=== PATIENT | female | born 2000 | race African-American/Black ===

== ENCOUNTER 2022-08-12 13:15 | Emergency (ER) | payer OTHER, SELFPAY ==
[2022-08-12 13:17] VITALS: BP 132/71; PULSE 61; RESP 14; TEMP 36.7; O2SAT 96; BMI 28.5
--- NOTE | 2022-08-12 13:24 | RAD_ITS ---
STUDY: X-RAY - LEFT HAND, ATTENTION THIRD FINGER REASON FOR EXAM: Female, 21 years old. INJURY FROM TRUNK LID -- 3RD DIGIT TECHNIQUE: 3 view(s) of the finger were obtained. COMPARISON: None. FINDINGS: Normal metacarpal head. Normal metacarpophalangeal joint. Normal proximal phalanx. Normal middle phalanx. Normal distal phalanx. Normal proximal interphalangeal joint. Normal distal interphalangeal joint. RAD/Finger(s) Min 2 Views IMPRESSION: Normal x-ray examination of the finger. Electronically Signed: Louis Felix MD at 13:48 EDT ,
--- NOTE | 2022-08-12 15:08 | EDS_ITS ---
HPI History of Present Illness Chief Complaint: Upper Extremity Injury Detail of Chief Complaint: Crush injury left long finger Informant: patient Occured/Mechanism Mechanism/Context: Yes blunt trauma Comment: Finger crushed by trunk 30 minutes prior to presentation Onset/Context/Timing Onset: Hours Context: Sudden Onset Timing: Continuous Quality of Pain: Dull and Throbbing Location: Left long finger Current Severity: Mild Maximum Severity: Moderate Worsened by: Movement and pressure Relieved by: Nothing Associated Symptoms Associated Symptoms: Negative for Parasthesia, Weakness or Loss of Funtion Narrative Narrative: Patient is a 21-year-old [id number] woman who presents with crush injury to her left long finger. She was closing her trunk. Her finger was smashed. She presents because of pain and subungual hematoma. She denies paresthesia, anesthesia or motor weakness. Tetanus is up-to-date. Tetanus Immunization: 5-10 years Prior similar symptoms: No Recent Illness/Hospitalization: No PFSH PFSH Medical History no medical history no medical history Allergy/AdvReac Type Severity Reaction Status Date / Time No Known Allergies Allergy Verified 08/12/22 13:19 Surgical History no surgical history no surgical history Social History (Updated 08/12/22 @ 15:[address] Justin Garcia MD) Smoking Status: Never smoker alcohol intake: never substance use type: does not use ROS ROS ED Musculoskeletal Musculoskeletal: Denies myalgias or neck pain Integumentary Reports other Details: Subungual hematoma left long finger ; Denies abscess, Abrasions or rash Neurologic Neurologic: Reports other Details: Detailed in the HPI narrative ; Denies paresthesias Hematologic/Lymphatic Hematologic/Lymphatic: Denies easy bleeding or easy bruising EXAM Physical Exam Const Vital Signs: 08/12/22 13:17 Temperature 98.1 F Temperature Source Temporal Pulse Rate 61 Respiratory Rate 14 Blood Pressure 132/71 H Blood Pressure Mean 91 Pulse Ox 96 Oxygen Delivery Method Room Air Positive well nourished and well developed Constitutional Narrative: Patient appears uncomfortable. She has ice applied to her left finger. General Appearance ED: well developed; Negative for cyanotic or diaphoretic HEENT normocephalic and atraumatic Eyes PERRL and EOMs intact bilaterally Resp normal respiratory effort Cardio regular rate and regular rhythm Extremity Negative for normal to inspection Extremity Narrative: There is a 40 to 50% subungual hematoma left long finger. The extensor commonest tendon is function intact. The flexor digitorum superficialis and flexor digitorum profundus are intact. Capillary fill is normal. Two-point termination is normal. There is no abrasion, laceration noted. Neuro oriented x3, CN's II-XII intact bilaterally, no focal motor deficits and no sensory deficits noted Psych mental status grossly normal Skin Skin Narrative: Described under the extremity portion of the medical record. Lesions: no lesions Rashes: no rashes MDM MDM Radiography Chest X-Ray - ED: Read by ED Physician (Three-view x-ray of the left long finger was performed. There is no evidence of fracture or soft tissue swelling. There is no evidence of subluxation or dislocation either. This was independent reviewed interpreted by me.) Diagnostic Testing: Clinical Impression(s) from Imaging Studies Finger X-Ray 08/12/22 13:24 IMPRESSION: Normal x-ray examination of the finger. Electronically Signed: Louis Felix MD at 13:48 EDT Reading Location ID and State: [facility] / [place] , Service support , Procedures Other Procedures Procedure(s): Trephination nail left long finger Discharge Plan Triage Chief Complaint: Upper Extremity Injury ED Provider: Justin Garcia Dx/Rx/DC Orders Clinical Impression: Crushing injury of other finger, initial encounter, Subungual hematoma of left middle finger Instructions: ED Subungual Hematoma Referrals: Whitney Arzate DO [Med Staff - [employer]] - As Needed Activity Restrictions/Additional Instructions: There is a 2550% chance that you may lose the nail. Since you do not have a physician you were referred to Dr. Arzate. Disposition Disposition: Home, Self Care
[2022-08-12 15:24] VITALS: PULSE 87; RESP 16; O2SAT 99
== END 2022-08-12 15:34 | disposition home or self-care (01) ==
PROVIDERS: Emergency Provider Emergency Medicine; Visit Provider Emergency Medicine
DX: S67.193A Crushing injury of left middle finger, initial encounter (principal); S60.132A Contusion of left middle finger with damage to nail, initial encounter; W23.0XXA Caught, crushed, jammed, or pinched between moving objects, initial encounter
CPT/HCPCS: 11740; 11730; 73140; 99282

== ENCOUNTER 2023-01-12 09:15 | Emergency (ER) | payer OTHER, SELFPAY ==
[2023-01-12 09:15] VITALS: BP 139/65; PULSE 73; RESP 15; TEMP 36.4; O2SAT 100; BMI 28.3
--- NOTE | 2023-01-12 10:00 | EDS_ITS ---
HPI History of Present Illness HPI Narrative: Presents with bilateral lower extremity edema that she noticed yesterday. Patient states she also has some pain in her right foot for the past few days. Patient denies any specific trauma or injury. Patient states her foot pain is worse with weightbearing. Patient describes it as sharp. Patient denies any paresthesias or weakness. Patient states that her legs have some pitting edema bilaterally, worse on the left. Patient denies any fevers or chills. Patient denies any shortness of breath or cough. Patient denies any paresthesias or weakness. Chief Complaint: Edema Informant: patient Onset/Context/Timing Onset: Yesterday Context: Gradual Onset Timing: Continuous Location: Bilateral lower legs Worsened by: Nothing Relieved by: Nothing Associated Symptoms Associated Symptoms: Negative for Parasthesia, Weakness or Loss of Funtion PFSH PFSH Medical History no medical history no medical history Allergy/AdvReac Type Severity Reaction Status Date / Time No Known Allergies Allergy Verified 08/12/22 13:19 Surgical History (Updated 01/12/23 @ 10:[address] Eric Maki DO) History of mandibular surgery Social History Smoking Status: Never smoker alcohol intake: never substance use type: does not use ROS ROS ED Constitutional Constitutional ED: Denies chills or fever(s) Eyes Eyes: Denies blurry vision or change in vision ENT ENT ED: Denies rhinorrhea or sore throat Cardiovascular Cardiovascular: Denies chest pain or palpitations Respiratory/Chest Respiratory/Chest: Denies cough or dyspnea Gastrointestinal Gastrointestinal: Denies nausea or vomiting Genitourinary Genitourinary ED: Denies dysuria or hematuria Musculoskeletal Musculoskeletal: Denies back pain or neck pain Integumentary Denies abscess or rash Neurologic Neurologic: Denies headache(s) or weakness Allergic/Immunologic Allergic/Immunologic ED: Denies mouth swelling or urticaria EXAM Physical Exam Const Vital Signs: 01/12/23 09:15 01/12/23 09:26 01/12/23 11:15 Temperature 97.5 F L Temperature Source Temporal Pulse Rate 73 Respiratory Rate 15 16 Respiratory Effort Normal Non-Labored Respiratory Pattern Normal Blood Pressure 139/65 H Blood Pressure Mean 89 Pulse Ox 100 Oxygen Delivery Method Room Air Positive well nourished and well developed General Appearance ED: well developed and NAD HEENT Reports moist mucous membranes Neck full ROM and supple Extremity normal to inspection and full ROM Extremity Narrative: There is tenderness over the midportion of the right foot. There is no obvious deformity noted. Range of motion was limited in all motions of the right foot secondary to pain. Sensation was intact to light touch in all digits. Pedal pulses are equal bilaterally.. There is trace edema over the lower extremities bilaterally. The there is no calf tenderness. There is full range of motion. Neuro oriented x3, CN's II-XII intact bilaterally, moves all extremities and no sensory deficits noted Sensorium / Orientation: alert Motor Exam: strength 5/5 throughout Psych mental status grossly normal MDM MDM MDM Narrative Medical decision making narrative: Differential diagnosis includes stress fracture right foot, sprain, peripheral edema, acute kidney injury. X-rays of the right foot will be obtained to assess for fracture. CBC will be obtained to assess for leukocytosis and anemia. Basic metabolic profile likely obtained to assess for electrolyte abnormality and renal function. Lab Data Attestation: I reviewed the patient's lab results. Lab results narrative: CBC was reviewed and was essentially within normal limits. Basic metabolic profile was reviewed and was within normal limits. Labs: Laboratory Results - last 24 hr 01/12/23 10:31 WBC 3.6 L RBC 4.48 Hgb 12.3 Hct 39.8 MCV 88.8 MCH 27.5 MCHC 30.9 L RDW Std Deviation 44.0 H RDW Coeff of Brenda 13.5 Plt Count 319 MPV 9.8 Immature Gran % (Auto) 0.300 Neut % (Auto) 46.9 L Lymph % (Auto) 41.9 H [place] % (Auto) 6.4 Eos % (Auto) 3.9 Baso % (Auto) 0.6 Absolute Neuts (auto) 1.7 L Absolute Lymphs (auto) 1.51 Nucleated RBC % 0 Sodium 138 Potassium 3.7 Chloride 110 H Carbon Dioxide 24.0 Anion Gap 4 L BUN 9 Creatinine 0.84 Estim Creat Clear Calc 92.25 Est GFR (MDRD) Af Amer 111 Est GFR (MDRD) Non-Af 91 BUN/Creatinine Ratio 10.7 Glucose 122 H Calcium 8.6 Radiography Diagnostic Testing: Clinical Impression(s) from Imaging Studies Foot X-Ray 01/12/23 10:23 IMPRESSION: Within normal limits examination. Electronically Signed: Cecilia Salomon MD at 11:02 EDT , X-rays of the right foot were obtained. There are 3 views. On my independent interpretation, there is no acute fracture. There is no dislocation. There is no soft tissue swelling. Radiologist also interpreted the x-rays and agrees. Treatment and Re-Evaluation Narrative: Patient was advised of her findings. Patient was given a walking boot. Patient was instructed to ice and elevate the right foot. Patient was instructed to call or ibuprofen as needed for pain. Patient was instructed to follow-up with her primary care physician in 5 to 7 days. Patient understood and was agreeable with the plan. All questions were answered. Discharge Plan Triage Chief Complaint: Edema ED Provider: Eric Maki Dx/Rx/DC Orders Clinical Impression: Peripheral edema, Arthralgia of right foot Instructions: ED Peripheral Edema, Bilateral, ED Foot Sprain Primary Care Provider: Tello Pradhan MD Referrals: Tello Pradhan MD [Other] - 5-7 Days Disposition Disposition: Home, Self Care Discharge Date/Time: 01/12/23 11:48
--- NOTE | 2023-01-12 10:23 | RAD_ITS ---
INDICATION: Injury/Pain -- -- pain across top of 4th and 5th MT area, NKI -- pain for awhile EXAMINATION/TECHNIQUE: X-RAY - RIGHT XR Foot Min 3 Views 3 VIEWS COMPARISON: No relevant prior comparison study available FINDINGS: SOFT TISSUES: No soft tissue swelling or gas. No radiopaque foreign body. BONES/JOINTS: No acute fracture or subluxation.. Normal alignment. Preservation of the joint space.. No sclerotic or destructive changes observed. RAD/Foot min 3 Views IMPRESSION: Within normal limits examination. Electronically Signed: Cecilia Salomon MD at 11:02 EDT ,
[2023-01-12 10:51] LABS: Absolute Lymphocyte Count 1.51 X10^3/uL (0.83-4.51); Absolute Neutrophil Count 1.7 X10^3/uL (2.0-7.7); Basophil# 0.02 X10^3/uL; Basophil% 0.6 % (0-1); Eosinophil# 0.14 X10^3/uL; Eosinophils% 3.9 % (0-5); Hematocrit 39.8 % (37-47); Hemoglobin 12.3 g/dL (12.0-15.0); Lymphocyte # 1.51 X10^3/ul (0.83-4.51); Lymphocyte % 41.9 % (19-41); Mean Corp Hgb Conc 30.9 g/dL (32-36); Mean Corpuscular Hgb 27.5 pg (27.0-32.0); Mean Corpuscular Volume 88.8 fL (81-99); Mean Platelet Vol. 9.8 fl (6.2-12.0); Monocyte# 0.23 X10^3/uL; Monocyte% 6.4 % (0-10); NRBC Flagged by Analyzer 0 % (0-5); Neutrophil # 1.69 X10^3/uL (2.7-7.7); Neutrophil % 46.9 % (47-70); Platelet Count 319 K/mm3 (150-450); RBC Distribution Width CV 13.5 % (11.6-14.6); Red Blood Count 4.48 M/mm3 (4.2-5.4); White Blood Count 3.6 K/mm3 (4.4-11.0)
[2023-01-12 11:00] LABS: Anion Gap 4 (5-15); BUN 9 mg/dL (7-18); BUN/Creat Ratio 10.7 RATIO (10-20); Calcium,Total 8.6 mg/dL (8.5-10.1); Chloride 110 mmol/L (98-107); Creatinine, Serum 0.84 mg/dL (0.55-1.02); EST Glomerular Filtration Rate 91 mL/min (>60); Est Glom Filt Rate - Afr Amer 111 mL/min (>60); Estimated Creatinine Clearance 92.25 ml/min; Glucose 122 mg/dL (74-106); Potassium 3.7 mmol/L (3.5-5.1); Sodium Level 138 mmol/L (136-145)
[2023-01-12 11:15] VITALS: RESP 16
== END 2023-01-12 11:48 | disposition home or self-care (01) ==
PROVIDERS: Emergency Provider Emergency Medicine; Visit Provider Emergency Medicine
DX: R60.9 Edema, unspecified (principal); M79.671 Pain in right foot
CPT/HCPCS: 73630; 80048; 85025; 99284; A4216